=== PATIENT | male | born 1955 | race Caucasian/White ===

== ENCOUNTER 2016-06-12 05:41 | Day surgery (SDC) | payer OTHER ==
[~2016-06-12] VITALS: Ht 170.2 cm; Wt 68.5 kg
[~2016-06-12 05:41] MED LIST: NAPR-260 PO; RANI150T5 PO; TAMS-14 PO
[2016-06-12 06:33] VITALS: Ht 170.2 cm; Wt 68.5 kg
[2016-06-12 06:59] VITALS: BP 120/69; PULSE 63; RESP 15
[2016-06-12] MEDS ORDERED: OMEP20CA16 PO (07:04)
[2016-06-12] MEDS ORDERED: DICY10CA60 PO (07:04)
[2016-06-12] MEDS ORDERED: FENTAnyl 50 MCG/ML VIAL ONE (07:49)
[2016-06-12] MEDS ORDERED: MIDAZOLAM 1 MG/ML 2 ML INJ ONE (07:49)
[2016-06-12 08:05] VITALS: BP 111/72; PULSE 62; RESP 14
--- NOTE | 2016-06-12 13:23 | GILP ---
DATE OF PROCEDURE: NAME OF PROCEDURES: Esophagogastroduodenoscopy and biopsy. SURGEON: Yuan Taylor MD PREOPERATIVE DIAGNOSIS: Abdominal pain. POSTOPERATIVE DIAGNOSES 1. Gastritis with erosions. 2. Gastric mucosal biopsies were taken for Helicobacter pylori test. INDICATION FOR THE PROCEDURE: Mr. Arvind Menjivar is a 60-year-old male patient who had upper abdomi nal pain, not responding to therapy. Patient was scheduled for endoscopic examination for further e valuation. The procedure and possible complications were well explained to the patient, he understood and conse nted to the procedure. DESCRIPTION OF PROCEDURE: Under the influence of fentanyl and Versed, the gastroscope was carefully introduced into the esophagus and under direct vision, it was advanced to the stomach and through t he pylorus into the duodenal bulb and descending duodenum. FINDINGS: ESOPHAGUS: The mucosa was normal. STOMACH: The patient had gastritis with erosions. Gastric mucosal biopsies were taken for H. pylor i test. DUODENUM: Normal. The patient tolerated the procedure very well and there was no complication from the procedure. At the end of the procedure, he was awake with stable vital signs and he was discharged home to the car e of his family. IMPRESSION: 1. Gastritis with erosions. 2. Gastric mucosal biopsies were taken for Helicobacter pylori test. PLAN: 1. Continue omeprazole and Zantac. 2. Bentyl p.r.n. for pain. 3. Await H. pylori test report. Dictated By: YUAN JONES/EDIE Conf#: [id number] DID#: [id number]
== END 2016-06-12 09:45 | disposition home or self-care (01) ==
LOC: GIL 05:41
PROVIDERS: ATTEND Internal Medicine Gastroenterology
DX: K29.60 Other gastritis without bleeding (principal)
CPT/HCPCS: 43239; 87081; J2250; J3010; Z7610